=== PATIENT | male | born 1965 | race African-American/Black ===

== ENCOUNTER 2017-01-12 08:37 | Day surgery (SDC) | payer OTHER ==
[2017-01-12] VITALS (22 sets, daily range): BP systolic 115–164; BP diastolic 70–98; PULSE 45–92; RESP 13–19; Ht 162.6 cm; Wt 70.3 kg
[~2017-01-12] VITALS: Ht 162.6 cm; Wt 70.3 kg
[~2017-01-12 08:37] MED LIST: CEFAZOLIN 2 GM/50 ML (PMX) 50 ML IVPB SCH; EPHEDrine SULFATE 50 MG/5 ML SYG ONE; SOD CHLORIDE 0.9% 1,000 ML IV SCH
[2017-01-12] MEDS ORDERED: BUPIVACAINE 0.25% (MPF) 30 ML INJ ONE (11:49)
[2017-01-12] MEDS ORDERED: OXYCODONE/ACETAMINOPHEN (5/325) TAB PO PRN (12:00)
[2017-01-12] MEDS ORDERED: HYDROmorphONE (0.2 MG/ML) 10ML SYG IV PRN (12:00)
[2017-01-12] MEDS ORDERED: FENTAnyl 50 MCG/ML VIAL IV PRN (12:00)
[2017-01-12] MEDS ORDERED: MEPERIDINE 25 MG INJ IV PRN (12:00)
[2017-01-12] MEDS ORDERED: PROCHLORPERAZINE 10 MG INJ IV PRN (12:00)
[2017-01-12] MEDS ORDERED: DIPHENHYDRAMINE 50 MG INJ IV PRN (12:00)
[2017-01-12] MEDS ORDERED: ONDANSETRON 4 MG INJ IV PRN (12:00)
[2017-01-12] MEDS ORDERED: PROPOFOL 0 ML ONE (12:07)
[2017-01-12] MEDS ORDERED: LIDOCAINE 2% (SDV) 5 ML INJ ONE (12:07)
[2017-01-12] MEDS ORDERED: MIDAZOLAM 1 MG/ML 2 ML INJ ONE (12:07)
[2017-01-12] MEDS ORDERED: FENTAnyl 50 MCG/ML VIAL ONE (12:12)
[2017-01-12] MEDS ORDERED: ONDANSETRON 4 MG INJ ONE (12:12)
[2017-01-12] MEDS ORDERED: DEXAMETHASONE 4 MG/ML 1 ML INJ ONE (12:12)
[2017-01-12] MEDS ORDERED: FAMOTIDINE 20 MG INJ ONE (12:23)
[2017-01-12] MEDS ORDERED: PROPOFOL 20 ML ONE ×2 (12:23)
[2017-01-12] MEDS ORDERED: GLYCOPYRROLATE 0.4 MG INJ ONE (12:39)
--- NOTE | 2017-01-12 12:48 | OPR ---
Date/Time of Note Date/Time of Note DATE: 01/12/17 TIME: 12:46 Operative Report Procedure Date: Jan 12, 2017 Preoperative Diagnosis posterior scalp mass Postoperative Diagnosis same Operation Performed 1. excision of posterior scalp mass 6 cm mass 7 cm incision 2. localized adjacent tissue transfer of skin flaps 14 sq cm defect 3. therapeutic injection of subcutaneous marcaine cpt code [id number] Surgeon: Violette MONTES DE OCA Anesthesia Type: general Estimated Blood Loss: 10 - 50 ml's Specimens posterior scalp mass Grafts/Implants: none Complications: no Indications 51-year-old male with posterior scalp mass. He requires surgical excision. Risks alternatives benefits of percent were discussed the patient. Patient's expressed understanding consents to the operation. Procedure Description Patient taken to the OR and prepped and draped in usual sterile fashion. Surgical timeout is performed. IV antibiotics were given. Transverse incision is made over the posterior scalp mass with a 15 blade. Dissection cautery was carried onto the mass and the mass was circumferentially excised. A large tissue defect removed. Due to the large tissue defect localized adjacent tissue transfer with these of skin flaps was performed. Multilayer closure with interrupted 3-0 Vicryl and running 4-0 Monocryl. Therapeutic subcutaneous Marcaine was injected throughout the incision. Dry dressings were applied. Violette MONTES DE OCA Jan 12, 2017 12:48
[2017-01-12] MEDS ORDERED: HYDROCODONE/APAP (5/325) TAB PO ONE (13:00)
== END 2017-01-12 15:29 | disposition home or self-care (01) ==
LOC: SDS 08:37
PROVIDERS: ATTEND Surgery
DX: D17.0 Benign lipomatous neoplasm of skin and subcutaneous tissue of head, face and neck (principal); I10 Essential (primary) hypertension; J44.9 Chronic obstructive pulmonary disease, unspecified
CPT/HCPCS: 14021; 88307; J1100; J2175; J2250; J2405; J3010; Z7512; Z7610